=== PATIENT | female | born 1980 | race African-American/Black ===

== ENCOUNTER 2016-07-04 23:54 | Emergency (ER) | payer OTHER ==
[~2016-07-04] VITALS: Ht 162.6 cm; Wt 95.4 kg
[~2016-07-04 23:54] MED LIST: BACLOFEN10 MG PO; CYCLOBENZAPRINE10 MG PO; ERGOCALCIF50000 UNIT PO; FLEXERIL5 MG PO; IBUPROFEN800 MG PO; LIDODERM 5% P1 PATCH TD; LISINOPRIL30 MG PO; LISINOPRIL40 MG PO; MORPHINE SULFAT15 M1 PO; MOTRIN600 MG PO; NAPROSYN500 MG; NAPROSYN500 MG PO; NAPROXEN500 MG PO; NOHOMEMEDS; NORCO 5/3251 TABLET PO; NORTRIPTYLINE H10 MG PO; OXYCODONE-APAP1 EACH PO; PERCOCET 10/1 TABLET PO; SIMVASTATIN20 MG; SIMVASTATIN20 MG PO; TESSALON200 MG PO; TOPAMAX100 MG PO; TOPIRAMATE100 MG PO; TRAMADOL HCL50 MG; TRAMADOL HCL50 MG PO; ZANTAC150 MG PO
[2016-07-05 01:15] LABS: EOSINOPHIL (%) 3.7 % (0-5); EOSINOPHIL COUNT 0.1 K/uL (0-0.3); HEMATOCRIT 34.8 % (36.0-46.0); IMMATURE GRANULOCYTE (%) 0.3 % (0.0-0.7); IMMATURE GRANULOCYTE COUNT 0.1 K/uL; LYMPHOCYTE COUNT 0.7 K/uL (1.0-2.8); MCH 30.9 PG (29.0-34.0); MCHC 33.3 G/DL (30.0-36.0); MCV 92.8 FL (83-99); MONOCYTE COUNT 0.3 K/uL (0-0.8); NEUTROPHIL (%) 70.5 % (45-76); NEUTROPHIL COUNT 2.5 K/uL (1.8-6.4); RBC DIS.WIDTH-CV 12.6 % (11.8-14.6); RBC DIS.WIDTH-SD 40.9 % (39-53); RED BLOOD COUNT 3.75 M/uL (3.80-5.20); WHITE BLOOD COUNT 3.6 K/uL (4.1-10.2)
[2016-07-05 01:58] LABS: INTERNAL CONTROL VALID? YES; MONOSPOT (MONONUCLEOSIS SEROL) NEGATIVE
[2016-07-05 02:10] VITALS: BP 111/73
[2016-07-05 02:10] LABS: C-REACTIVE PROTEIN 1.8 MG/L (0-10)
[2016-07-05 02:30] LABS: ANISOCYTOSIS 1+; MACROCYTES 1+; MEAN PLAT.VOLUME 11.8 uM^3 (9.5-12.4); MICROCYTOSIS FEW; OVALOCYTES 1+; PLAT.SUFFICIENCY ADEQUATE; PLATELET COUNT 183 K/uL (156-360); SMUDGE CELLS 0
[2016-07-05 02:36] LABS: ERTH.SED.RATE 19 MM/HR (0-20)
[2016-07-06] MEDS ORDERED: IBUPROFEN800 MG PO (10:34)
== END 2016-07-05 02:18 | disposition home or self-care (01) ==
LOC: EME 23:54
PROVIDERS: Emergency Medicine
DX: K11.20 Sialoadenitis, unspecified (principal); B34.9 Viral infection, unspecified; I10 Essential (primary) hypertension
CPT/HCPCS: 82150; 83690; 85025; 85651; 86140; 86308; 86735 90; 99281; 99284

== ENCOUNTER 2016-07-06 06:35 | Emergency (ER) | payer OTHER ==
[~2016-07-06] VITALS: Ht 165.1 cm; Wt 94.5 kg
[2016-07-06 08:25] LABS: HEMATOCRIT 34.9 % (36.0-46.0); MCHC 33.5 G/DL (30.0-36.0); MCV 92.6 FL (83-99); MEAN PLAT.VOLUME 11.3 uM^3 (9.5-12.4); PLATELET COUNT 154 K/uL (156-360); RBC DIS.WIDTH-SD 42.3 % (39-53); RED BLOOD COUNT 3.77 M/uL (3.80-5.20); WHITE BLOOD COUNT 2.9 K/uL (4.1-10.2)
[2016-07-06 08:36] LABS: CHLORIDE 113 mEq/L (99-109); POTASSIUM 5.2 mEq/L (3.7-5.4); SODIUM 139 mEq/L (136-147)
[2016-07-06 08:38] LABS: GLUCOSE 93 mg/dL (70-99)
[2016-07-06 08:39] LABS: ANION GAP 9 MEQ/L (2-14)
[2016-07-06 08:40] LABS: TOTAL BILIRUBIN < 0.1 mg/dL (0.0-1.0)
[2016-07-06 08:41] LABS: ALKALINE PHOSPHATASE 60 IU/L (3-129)
[2016-07-06 08:42] LABS: GFR ESTIMATE (CALCULATED) > 59 mL/min/
[2016-07-06 08:43] LABS: UREA NITROGEN (BUN) 16 mg/dL (9-23)
[2016-07-06] MEDS ORDERED: IBUPROFEN800 MG PO (10:34)
[2016-07-06 10:52] VITALS: BP 120/83
== END 2016-07-06 10:53 | disposition home or self-care (01) ==
LOC: EME 06:35
PROVIDERS: Nurse Practitioner Family
DX: K11.21 Acute sialoadenitis (principal); B34.9 Viral infection, unspecified; H92.01 Otalgia, right ear; Z87.891 Personal history of nicotine dependence
CPT/HCPCS: 70491; 80053; 85027; 87651 90; 99281; 99285; J1100; J7030

== ENCOUNTER 2016-10-17 08:47 | Day surgery (SDC) | payer OTHER ==
[~2016-10-17] VITALS: Ht 165.1 cm; Wt 94.8 kg
[~2016-10-17 08:47] MED LIST changes: +ASCORBIC ACID100 MG PO; +MULTIPLE VITAM1 EACH PO; +PERCOCET 7.51 TABLET PO
== END 2016-10-17 10:50 | disposition home or self-care (01) ==
LOC: PAIN 08:47
DX: M47.22 Other spondylosis with radiculopathy, cervical region (principal); F41.9 Anxiety disorder, unspecified; M25.512 Pain in left shoulder; D33.2 Benign neoplasm of brain, unspecified; I10 Essential (primary) hypertension; E78.2 Mixed hyperlipidemia; E66.9 Obesity, unspecified; Z87.891 Personal history of nicotine dependence; Z68.35 Body mass index [BMI] 35.0-35.9, adult; Z88.0 Allergy status to penicillin; Z88.1 Allergy status to other antibiotic agents
CPT/HCPCS: J1030; J2250; J3010; S0020

== ENCOUNTER 2016-11-05 04:33 | Emergency (ER) | payer OTHER ==
[~2016-11-05] VITALS: Ht 165.1 cm; Wt 93.4 kg
[2016-11-05] MEDS ORDERED: PREDNISONE10 MG PO (05:30)
[2016-11-05 06:08] VITALS: BP 112/85
[2016-11-06] MEDS ORDERED: PEPCID20 MG PO (18:46)
[2016-11-06] MEDS ORDERED: BENADRYL25 MG PO (18:46)
[2016-11-06] MEDS ORDERED: BACTRIM,SEPT1 TABLET PO (19:23)
== END 2016-11-05 06:08 | disposition home or self-care (01) ==
LOC: EME 04:33
DX: L50.9 Urticaria, unspecified (principal); T78.40XA Allergy, unspecified, initial encounter; X58.XXXA Exposure to other specified factors, initial encounter; Z87.891 Personal history of nicotine dependence
CPT/HCPCS: 99281; 99283; J7512

== ENCOUNTER 2016-11-06 15:20 | Emergency (ER) | payer OTHER ==
[~2016-11-06] VITALS: Ht 162.6 cm; Wt 96.8 kg
[~2016-11-06 15:20] MED LIST changes: +PREDNISONE10 MG PO
[2016-11-06 18:41] LABS: HEMATOCRIT 35.3 % (36.0-46.0); MCHC 32.9 G/DL (30.0-36.0); MCV 94.4 FL (83-99); PLATELET COUNT 168 K/uL (156-360); RBC DIS.WIDTH-SD 45.1 % (39-53); RED BLOOD COUNT 3.74 M/uL (3.80-5.20)
[2016-11-06] MEDS ORDERED: PEPCID20 MG PO (18:46)
[2016-11-06] MEDS ORDERED: BENADRYL25 MG PO (18:46)
[2016-11-06 18:49] LABS: CHLORIDE 108 mEq/L (99-109); POTASSIUM 3.7 mEq/L (3.7-5.4); SODIUM 142 mEq/L (136-147)
[2016-11-06 18:51] LABS: GLUCOSE 134 mg/dL (70-99)
[2016-11-06 18:52] LABS: ANION GAP 7 MEQ/L (2-14)
[2016-11-06 18:54] LABS: GFR ESTIMATE (CALCULATED) > 59 mL/min/
[2016-11-06 18:55] LABS: UREA NITROGEN (BUN) 9 mg/dL (9-23)
[2016-11-06 19:01] LABS: ADD MIUA? YES; BILIRUBIN NEGATIVE; BLOOD NEGATIVE; COLOR YELLOW ((YELLOW)); GLUCOSE (STRIP) NEGATIVE; KETONES 5; LEUKOCYTES LARGE; NITRITE NEGATIVE; PROTEIN (STRIP) 30
[2016-11-06] MEDS ORDERED: BACTRIM,SEPT1 TABLET PO (19:23)
[2016-11-06 19:31] LABS: BACTERIA 1+ /HPF; EPITHELIAL CELLS RARE /HPF; MUCUS 1+ /LPF; RED BLOOD CELLS 0-5 /HPF (0-5)
[2016-11-06 19:46] VITALS: BP 132/82
== END 2016-11-06 19:47 | disposition home or self-care (01) ==
LOC: EME 15:20
PROVIDERS: Nurse Practitioner Family
DX: N39.0 Urinary tract infection, site not specified (principal); T78.40XA Allergy, unspecified, initial encounter; J30.2 Other seasonal allergic rhinitis; Z88.1 Allergy status to other antibiotic agents
CPT/HCPCS: 80048; 81003; 85027; 99281; 99284; J7512

== ENCOUNTER 2016-11-09 14:18 | Emergency (ER) | payer OTHER ==
[~2016-11-09] VITALS: Ht 165.1 cm; Wt 95.0 kg
[~2016-11-09 14:18] MED LIST changes: +BACTRIM,SEPT1 TABLET PO; +BENADRYL25 MG PO; +PEPCID20 MG PO
[2016-11-09] MEDS ORDERED: LOSARTAN POTASS50 MG PO (17:13)
[2016-11-09] MEDS ORDERED: HYDROCHLOROTH12.5 M3 PO (17:13)
[2016-11-09 18:12] LABS: HEMATOCRIT 35.7 % (36.0-46.0); MCH 31.1 PG (29.0-34.0); MCHC 33.1 G/DL (30.0-36.0); MCV 93.9 FL (83-99); MEAN PLAT.VOLUME 11.5 uM^3 (9.5-12.4); PLATELET COUNT 178 K/uL (156-360); RBC DIS.WIDTH-CV 12.9 % (11.8-14.6); RBC DIS.WIDTH-SD 44.4 % (39-53); WHITE BLOOD COUNT 5.3 K/uL (4.1-10.2)
[2016-11-09 18:22] LABS: CHLORIDE 107 mEq/L (99-109); POTASSIUM 4.1 mEq/L (3.7-5.4); SODIUM 139 mEq/L (136-147)
[2016-11-09 18:23] LABS: GLUCOSE 132 mg/dL (70-99)
[2016-11-09 18:25] LABS: ANION GAP 7 MEQ/L (2-14)
[2016-11-09 18:27] LABS: GFR ESTIMATE (CALCULATED) > 59 mL/min/
[2016-11-09 18:28] LABS: UREA NITROGEN (BUN) 12 mg/dL (9-23)
[2016-11-09 18:34] LABS: TROP-I INTERPRETATION NEGATIVE; TROPONIN-I < 0.01 ng/mL (0.0-0.30)
[2016-11-09 19:06] LABS: PTT 27.8 (25-32)
[2016-11-09] MEDS ORDERED: ELIMITE 5% CREA60 GM TP (19:29)
[2016-11-09] MEDS ORDERED: ATARAX,VISTARIL25 MG PO (19:29)
[2016-11-09 20:22] VITALS: BP 124/77
== END 2016-11-09 20:24 | disposition home or self-care (01) ==
LOC: EME 14:18
PROVIDERS: Physician Assistant
DX: L50.0 Allergic urticaria (principal); R07.9 Chest pain, unspecified; R06.02 Shortness of breath; R20.0 Anesthesia of skin; T78.40XA Allergy, unspecified, initial encounter; W57.XXXA Bitten or stung by nonvenomous insect and other nonvenomous arthropods, initial encounter
CPT/HCPCS: 71020; 80048; 84484; 85027; 85610; 85730; 93005; 99281; 99284; J1200

== ENCOUNTER 2016-11-30 12:32 | Day surgery (SDC) | payer OTHER ==
[~2016-11-30] VITALS: Ht 165.1 cm; Wt 94.8 kg
[~2016-11-30 12:32] MED LIST changes: +ATARAX,VISTARIL25 MG PO; +ELIMITE 5% CREA60 GM TP; +HYDROCHLOROTH12.5 M3 PO; +LOSARTAN POTASS50 MG PO
== END 2016-11-30 14:20 | disposition home or self-care (01) ==
LOC: PAIN 12:32
PROC: 3E0X3CZ (ICD-10-PCS; principal; 2016-11-30)
PROC: 3E0X33Z Introduction of Anti-inflammatory into Cranial Nerves, Percutaneous Approach (ICD-10-PCS; principal; 2016-11-30)
DX: M47.812 Spondylosis without myelopathy or radiculopathy, cervical region (principal); M54.2 Cervicalgia; F41.9 Anxiety disorder, unspecified; M54.5 Low back pain; Z88.0 Allergy status to penicillin; Z88.1 Allergy status to other antibiotic agents
CPT/HCPCS: J1030; J2250; J3010; S0020

== ENCOUNTER 2017-02-22 12:19 | Day surgery (SDC) | payer OTHER ==
[~2017-02-22] VITALS: Ht 160 cm; Wt 65.2 kg
== END 2017-02-22 14:25 | disposition home or self-care (01) ==
LOC: PAIN 12:19
DX: M47.812 Spondylosis without myelopathy or radiculopathy, cervical region (principal); Z53.8 Procedure and treatment not carried out for other reasons
CPT/HCPCS: J1030; J2250; J3010; S0020

== ENCOUNTER 2017-03-18 18:56 | Emergency (ER) | payer OTHER ==
[~2017-03-18] VITALS: Ht 165.1 cm; Wt 99.7 kg
[2017-03-18 20:16] LABS: CHLORIDE 109 mEq/L (99-109); POTASSIUM 4.3 mEq/L (3.7-5.4); SODIUM 141 mEq/L (136-147)
[2017-03-18 20:18] LABS: GLUCOSE 96 mg/dL (70-99)
[2017-03-18 20:18] LABS: ADD MIUA? YES; BILIRUBIN NEGATIVE; BLOOD LARGE; COLOR YELLOW ((YELLOW)); GLUCOSE (STRIP) NEGATIVE; KETONES NEGATIVE; LEUKOCYTES SMALL; NITRITE NEGATIVE; PROTEIN (STRIP) 30; SPECIFIC GRAVITY 1.024 (1.000-1.030)
[2017-03-18 20:20] LABS: ANION GAP 7 MEQ/L (2-14); TOTAL BILIRUBIN 0.2 mg/dL (0.0-1.0)
[2017-03-18 20:22] LABS: ALKALINE PHOSPHATASE 71 IU/L (3-129); GFR ESTIMATE (CALCULATED) > 59 mL/min/
[2017-03-18 20:23] LABS: UREA NITROGEN (BUN) 9 mg/dL (9-23)
[2017-03-18 20:25] LABS: CREATINE KINASE 71 IU/L (1-294)
[2017-03-18 20:45] LABS: BACTERIA RARE /HPF; EPITHELIAL CELLS 1+ /HPF; MUCUS TRACE /LPF
[2017-03-18] MEDS ORDERED: TESSALON PERLE100 MG PO (21:07)
[2017-03-18 22:30] VITALS: BP 121/69
== END 2017-03-18 22:31 | disposition home or self-care (01) ==
LOC: EME 18:56
PROVIDERS: Physician Assistant
DX: B34.9 Viral infection, unspecified (principal); S16.1XXA Strain of muscle, fascia and tendon at neck level, initial encounter; X58.XXXA Exposure to other specified factors, initial encounter; R20.0 Anesthesia of skin; R51 Headache; H57.8 Other specified disorders of eye and adnexa; R05 Cough; R68.2 Dry mouth, unspecified; Z87.891 Personal history of nicotine dependence
CPT/HCPCS: 70450; 80053; 81003; 82550; 99281; 99284; J1100

== ENCOUNTER 2017-03-23 16:36 | Emergency (ER) | payer OTHER ==
[~2017-03-23] VITALS: Ht 165.1 cm; Wt 87.6 kg
[~2017-03-23 16:36] MED LIST changes: +TESSALON PERLE100 MG PO
[2017-03-23 18:20] LABS: HEMATOCRIT 36.3 % (36.0-46.0); MCHC 33.6 G/DL (30.0-36.0); MCV 95.3 FL (83-99); MEAN PLAT.VOLUME 10.7 uM^3 (9.5-12.4); PLATELET COUNT 292 K/uL (156-360); RBC DIS.WIDTH-CV 11.9 % (11.8-14.6); RBC DIS.WIDTH-SD 41.3 % (39-53); RED BLOOD COUNT 3.81 M/uL (3.80-5.20); WHITE BLOOD COUNT 5.7 K/uL (4.1-10.2)
[2017-03-23 18:29] LABS: CHLORIDE 110 mEq/L (99-109); SODIUM 141 mEq/L (136-147)
[2017-03-23 18:31] LABS: GLUCOSE 116 mg/dL (70-99)
[2017-03-23 18:32] LABS: ANION GAP 7 MEQ/L (2-14)
[2017-03-23 18:35] LABS: GFR ESTIMATE (CALCULATED) > 59 mL/min/
[2017-03-23 18:36] LABS: UREA NITROGEN (BUN) 13 mg/dL (9-23)
[2017-03-23 18:37] LABS: CREATINE KINASE 133 IU/L (1-294)
[2017-03-23] MEDS ORDERED: NAPROSYN500 MG PO (19:20)
[2017-03-23] MEDS ORDERED: NORCO 10/3251 TABLET PO (19:20)
[2017-03-23 20:44] VITALS: BP 132/85
== END 2017-03-23 20:57 | disposition home or self-care (01) ==
LOC: EME 16:36
PROVIDERS: Physician Assistant
DX: G56.02 Carpal tunnel syndrome, left upper limb (principal); Z88.0 Allergy status to penicillin; Z88.1 Allergy status to other antibiotic agents
CPT/HCPCS: 80048; 82550; 82607; 84439; 84443; 85027; 93971; 99281; 99284

== ENCOUNTER 2017-05-08 18:41 | Observation (INO) | payer OTHER ==
[~2017-05-08] VITALS: Ht 165.1 cm; Wt 100.6 kg
[~2017-05-08 18:41] MED LIST changes: +NORCO 10/3251 TABLET PO
[2017-05-09 01:12] LABS: HEMATOCRIT 37.5 % (36.0-46.0); HEMOGLOBIN 12.4 G/DL (11.9-15.5); MCH 31.3 PG (29.0-34.0); MCHC 33.1 G/DL (30.0-36.0); MCV 94.7 FL (83-99); PLATELET COUNT 173 K/uL (156-360); RBC DIS.WIDTH-CV 12.6 % (11.8-14.6); RED BLOOD COUNT 3.96 M/uL (3.80-5.20); WHITE BLOOD COUNT 3.7 K/uL (4.1-10.2)
[2017-05-09 01:20] LABS: CHLORIDE 102 mEq/L (99-109); POTASSIUM 3.6 mEq/L (3.7-5.4); SODIUM 136 mEq/L (136-147)
[2017-05-09 01:22] LABS: GLUCOSE 98 mg/dL (70-99)
[2017-05-09 01:26] LABS: CREATININE 0.8 mg/dL (0.6-1.3); GFR ESTIMATE (CALCULATED) > 59 mL/min/
[2017-05-09 01:27] LABS: UREA NITROGEN (BUN) 7 mg/dL (9-23)
[2017-05-09 01:28] LABS: CREATINE KINASE 105 IU/L (1-294)
[2017-05-09 01:33] LABS: TROP-I INTERPRETATION NEGATIVE; TROPONIN-I < 0.01 ng/mL (0.0-0.30)
[2017-05-09 09:31] LABS: TROP-I INTERPRETATION NEGATIVE; TROPONIN-I < 0.01 ng/mL (0.0-0.30)
[2017-05-09 09:33] LABS: Estimated Average Glucose 114 mg/dL (70-123); HEMOGLOBIN A1c (GLYCOHEMOGLOB) 5.6 % HGB (Below 5.7)
[2017-05-09 09:48] LABS: HDL CHOLESTEROL 39 MG/DL (Desirable>=50); LDL CHOLESTEROL 77 mg/dL (Desirable<100); NON-HDL CHOLESTEROL 101 mg/dL (Desirable<160); TOTAL CHOLESTEROL 140 mg/dL (Desirable<200); TRIGLYCERIDES 119 MG/DL (Normal: <150)
[2017-05-09 14:49] LABS: TROP-I INTERPRETATION NEGATIVE; TROPONIN-I < 0.01 ng/mL (0.0-0.30)
[2017-05-09 17:17] LABS: AMPHETAMINE NEGATIVE (500 ng/mL); BARBITURATES NEGATIVE (200 ng/mL); BENZODIAZEPINES NEGATIVE (150 ng/mL); BUPRENORPHINE NEGATIVE (10 ng/mL); COCAINE NEGATIVE (150 ng/mL); METHADONE NEGATIVE (200 ng/mL); METHAMPHETAMINE NEGATIVE (500 ng/mL); OPIATES (MORPHINE) NEGATIVE (100 ng/mL); OXYCODONE NEGATIVE (100 ng/mL); PHENCYCLIDINE PRESUMPTIVE POSITIVE (25 ng/mL); PROPOXYPHENE NEGATIVE (300 ng/mL); THC CANNABINOIDS NEGATIVE (50 ng/mL); TRICYCLIC ANTIDEPRESSANTS NEGATIVE (300 ng/mL)
[2017-05-09 17:38] VITALS: BP 124/66
[2017-05-09 21:00] VITALS: BP 121/69
[2017-05-10 04:15] VITALS: BP 110/60
[2017-05-10 08:30] VITALS: BP 131/63
[2017-05-10] MEDS ORDERED: NICOTINE PATCH1 EAC1 TD (09:27)
[2017-05-10] MEDS ORDERED: OSELTAMIVIR PHO75 MG PO (09:27)
[2017-05-10] MEDS ORDERED: ASPIR-LOW81 MG PO (09:27)
== END 2017-05-10 11:25 | disposition home or self-care (01) ==
LOC: EXP 18:41 → EME 18:41 → EDOF 05-09 07:52 → 5WEST 05-09 07:52 → CANRESERV 05-09 08:08 → ENRESERV 05-09 08:08 → 5WEST 05-09 17:24
PROVIDERS: Internal Medicine; Nurse Practitioner Family
DX: R07.9 Chest pain, unspecified (principal); R94.31 Abnormal electrocardiogram [ECG] [EKG]; J11.1 Influenza due to unidentified influenza virus with other respiratory manifestations; F19.10 Other psychoactive substance abuse, uncomplicated; I10 Essential (primary) hypertension; F17.210 Nicotine dependence, cigarettes, uncomplicated; Z82.49 Family history of ischemic heart disease and other diseases of the circulatory system; Z88.0 Allergy status to penicillin; Z88.1 Allergy status to other antibiotic agents; Z88.8 Allergy status to other drugs, medicaments and biological substances
CPT/HCPCS: 71046; 80048; 80061; 80306 90; 82550; 83036; 84484; 84999; 85027; 85379; 87502; 93005; 93306; 99281; 99285; G0378; J1650; J7030

== ENCOUNTER 2018-01-01 21:49 | Emergency (ER) | payer OTHER ==
[~2018-01-01] VITALS: Ht 162.6 cm; Wt 99.8 kg
[~2018-01-01 21:49] MED LIST changes: +ASPIR-LOW81 MG PO; +NICOTINE PATCH1 EAC1 TD; +OSELTAMIVIR PHO75 MG PO
[2018-01-01 22:59] LABS: HEMATOCRIT 35.8 % (36.0-46.0); HEMOGLOBIN 11.9 G/DL (11.9-15.5); MCH 31.6 PG (29.0-34.0); MCHC 33.2 G/DL (30.0-36.0); PLATELET COUNT 227 K/uL (156-360); RBC DIS.WIDTH-CV 12.4 % (11.8-14.6); RED BLOOD COUNT 3.77 M/uL (3.80-5.20); WHITE BLOOD COUNT 7.8 K/uL (4.1-10.2)
[2018-01-01 23:15] LABS: CHLORIDE 108 mEq/L (99-109); POTASSIUM 3.6 mEq/L (3.7-5.4); SODIUM 142 mEq/L (136-147)
[2018-01-01 23:17] LABS: GLUCOSE 120 mg/dL (70-99); TOTAL PROTEIN 6.9 g/dL (6.4-8.3)
[2018-01-01 23:19] LABS: TOTAL BILIRUBIN 0.2 mg/dL (0.0-1.0)
[2018-01-01 23:20] LABS: SERUM ETHYL ALCOHOL < 10 mg/dL
[2018-01-01 23:21] LABS: ALKALINE PHOSPHATASE 70 IU/L (3-129); CREATININE 0.7 mg/dL (0.6-1.3); GFR ESTIMATE (CALCULATED) > 59 mL/min/
[2018-01-01 23:22] LABS: UREA NITROGEN (BUN) 9 mg/dL (9-23)
[2018-01-01 23:23] LABS: AST (GOT) 19 IU/L (2-34)
[2018-01-01 23:24] LABS: ALT (GPT) 19 IU/L (3-49)
[2018-01-01 23:27] LABS: TROP-I INTERPRETATION NEGATIVE; TROPONIN-I < 0.01 ng/mL (0.0-0.30)
[2018-01-01 23:58] LABS: LIPASE 30 U/L (1.0-51.0)
[2018-01-02 01:03] LABS: AMPHETAMINE NEGATIVE (500 ng/mL); BARBITURATES NEGATIVE (200 ng/mL); BENZODIAZEPINES NEGATIVE (150 ng/mL); BUPRENORPHINE NEGATIVE (10 ng/mL); COCAINE NEGATIVE (150 ng/mL); METHADONE NEGATIVE (200 ng/mL); METHAMPHETAMINE NEGATIVE (500 ng/mL); OPIATES (MORPHINE) NEGATIVE (100 ng/mL); OXYCODONE NEGATIVE (100 ng/mL); PHENCYCLIDINE PRESUMPTIVE POSITIVE (25 ng/mL); PROPOXYPHENE NEGATIVE (300 ng/mL); THC CANNABINOIDS NEGATIVE (50 ng/mL); TRICYCLIC ANTIDEPRESSANTS NEGATIVE (300 ng/mL)
[2018-01-02] MEDS ORDERED: NORCO 5/3251 TABLET PO (01:10)
[2018-01-02 01:24] VITALS: BP 134/76
== END 2018-01-02 01:25 | disposition home or self-care (01) ==
LOC: EME → EDBD 21:49 → EME 21:49
PROVIDERS: Emergency Medicine
PROC: 2W39X1Z Immobilization of Left Upper Extremity using Splint (ICD-10-PCS; principal; 2018-01-01)
DX: S52.132A Displaced fracture of neck of left radius, initial encounter for closed fracture (principal); F16.10 Hallucinogen abuse, uncomplicated; W19.XXXA Unspecified fall, initial encounter; R94.31 Abnormal electrocardiogram [ECG] [EKG]; I10 Essential (primary) hypertension; R56.9 Unspecified convulsions; F32.9 Major depressive disorder, single episode, unspecified; F17.200 Nicotine dependence, unspecified, uncomplicated; Z98.890 Other specified postprocedural states; Z86.011 Personal history of benign neoplasm of the brain; Z88.0 Allergy status to penicillin; Z88.1 Allergy status to other antibiotic agents
CPT/HCPCS: 70450; 71045; 73080; 73110; 80053; 83690; 84484; 84999; 85027; 93005; 99281; 99285; G0480; J7030

== ENCOUNTER 2018-01-04 14:39 | Emergency (ER) | payer OTHER ==
[~2018-01-04] VITALS: Ht 167.6 cm; Wt 100.9 kg
[2018-01-04 18:30] LABS: AMPHETAMINE NEGATIVE (500 ng/mL); BARBITURATES NEGATIVE (200 ng/mL); BENZODIAZEPINES NEGATIVE (150 ng/mL); BUPRENORPHINE NEGATIVE (10 ng/mL); COCAINE NEGATIVE (150 ng/mL); METHADONE NEGATIVE (200 ng/mL); METHAMPHETAMINE NEGATIVE (500 ng/mL); OPIATES (MORPHINE) NEGATIVE (100 ng/mL); OXYCODONE PRESUMPTIVE POSITIVE (100 ng/mL); PHENCYCLIDINE PRESUMPTIVE POSITIVE (25 ng/mL); PROPOXYPHENE NEGATIVE (300 ng/mL); THC CANNABINOIDS NEGATIVE (50 ng/mL); TRICYCLIC ANTIDEPRESSANTS NEGATIVE (300 ng/mL)
[2018-01-04] MEDS ORDERED: LORTAB 5-325 M1 EACH PO (18:58)
[2018-01-04 19:07] VITALS: BP 135/61
== END 2018-01-04 19:19 | disposition home or self-care (01) ==
LOC: EME 14:39
PROVIDERS: Nurse Practitioner Family
DX: S52.92XA Unspecified fracture of left forearm, initial encounter for closed fracture (principal); S70.02XA Contusion of left hip, initial encounter; S05.11XA Contusion of eyeball and orbital tissues, right eye, initial encounter; W18.30XA Fall on same level, unspecified, initial encounter; Z79.891 Long term (current) use of opiate analgesic; Z88.0 Allergy status to penicillin; Z88.1 Allergy status to other antibiotic agents
CPT/HCPCS: 70450; 73502; 84999; 99281; 99284; G0480